=== PATIENT | female | born 1970 | race Caucasian/White ===

== ENCOUNTER 2021-05-30 13:41 | Emergency (ER) | payer OTHER ==
[2021-05-30 14:46] LABS: RED BLOOD COUNT 4.75 M/UL (4.00-5.10); WHITE BLOOD COUNT 6.7 K/UL (4.5-11.0)
[2021-05-30 15:11] LABS: BUN/CREATININE RATIO 30 (0-10)
[2021-05-30] MEDS ORDERED: TORADOL 10 MG T10 MG PO (17:27)
== END 2021-05-30 17:36 | disposition home or self-care (01) ==
LOC: ER1 13:41
DX: N13.2 Hydronephrosis with renal and ureteral calculous obstruction (principal); E11.9 Type 2 diabetes mellitus without complications; I10 Essential (primary) hypertension; Z90.49 Acquired absence of other specified parts of digestive tract; Z88.1 Allergy status to other antibiotic agents; Z88.2 Allergy status to sulfonamides; Z88.0 Allergy status to penicillin; Z87.442 Personal history of urinary calculi
CPT/HCPCS: 80053; 81001; 85025; 87086; 99284